=== PATIENT | female | born 1990 | race African-American/Black ===

== ENCOUNTER 2019-06-02 21:52 | Emergency (ER) | payer SELFPAY ==
[~2019-06-02] VITALS: Ht 160 cm; Wt 79.0 kg
[2019-06-02] MEDS ORDERED: KETOROLAC 30MG/ML VIAL IM ONE (23:15)
[2019-06-02 23:18] VITALS: BP 150/96
== END 2019-06-03 01:17 | disposition home or self-care (01) ==
LOC: ER 21:52
DX: S16.1XXA Strain of muscle, fascia and tendon at neck level, initial encounter (principal); V49.49XA Driver injured in collision with other motor vehicles in traffic accident, initial encounter; Y93.89 Activity, other specified; Y92.410 Unspecified street and highway as the place of occurrence of the external cause; R03.0 Elevated blood-pressure reading, without diagnosis of hypertension
CPT/HCPCS: 72040; 96372; 99283; J1885; Z7610

== ENCOUNTER 2021-06-17 08:24 | Emergency (ER) | payer MEDICAID ==
[~2021-06-17] VITALS: Ht 170.2 cm; Wt 59.0 kg
[2021-06-17] MEDS ORDERED: SODIUM CHLORIDE 0.9% 1,000 ML IV ONE (09:00)
[2021-06-17] MEDS ORDERED: ACETAMINOPHEN 325MG TABLET PO ONE (09:00)
[2021-06-17 10:30] LABS: BASOPHILS % 0.3 % (0.0-2.0); EOSINOPHILS % 0.1 % (0.0-5.0); HEMATOCRIT. 44.3 % (36.0-48.0); HEMOGLOBIN. 14.9 g/dL (12.0-16.0); LYMPHOCYTES % 20.9 % (20.0-50.0); MEAN CORPUSCULAR HEMOGLOBIN 29.7 pg (28.0-32.0); MEAN CORPUSCULAR VOLUME 88.5 fL (81.0-99.0); MEAN PLATELET VOLUME 9.3 fl (7.4-10.4); NEUTROPHILS % 67.7 % (40.0-76.0); PLATELET 401 x1000/uL (130-400); RED BLOOD CELL COUNT 5.01 mill/uL (4.2-5.4); RED CELL DISTRIBUTION WIDTH 13.6 % (11.6-14.6)
[2021-06-17 10:35] LABS: CHLORIDE 95 mEq/L (98-107)
[2021-06-17 10:46] LABS: B-HCG QUANTITATIVE 937 mIU/mL (<3)
[2021-06-17] MEDS ORDERED: PY25 MT (11:48)
[2021-06-17 13:34] VITALS: BP 124/68
[2021-06-25] MEDS ORDERED: FERR324T4 MT (15:00)
[2021-06-25] MEDS ORDERED: IBUP-2029 MT (15:00)
[2021-06-25] MEDS ORDERED: MULT-1116 MT (15:00)
== END 2021-06-17 13:35 | disposition home or self-care (01) ==
LOC: ER 08:24
DX: O46.91 Antepartum hemorrhage, unspecified, first trimester (principal); Z3A.01 Less than 8 weeks gestation of pregnancy; F12.10 Cannabis abuse, uncomplicated
CPT/HCPCS: 36415; 76801; 76817; 80053; 84702; 85025; 86850; 86900; 86901; 96360; 96361; 99285; J7030

== ENCOUNTER 2021-06-23 12:50 | Inpatient (IN) | payer MEDICAID, OTHER ==
[~2021-06-23] VITALS: Ht 157.5 cm; Wt 77.2 kg
[~2021-06-23 12:50] MED LIST: PY25 MT
[2021-06-23] MEDS ORDERED: ONDANSETRON HCL 4MG/2ML INJ IV STA (16:08)
[2021-06-23] MEDS ORDERED: SODIUM CHLORIDE 0.9% 1,000 ML IV ONE (16:15)
[2021-06-23 17:59] LABS: BASOPHILS % 0.4 % (0.0-2.0); EOSINOPHILS % 0.1 % (0.0-5.0); HEMATOCRIT. 37.8 % (36.0-48.0); HEMOGLOBIN. 12.5 g/dL (12.0-16.0); LYMPHOCYTES % 19.3 % (20.0-50.0); MEAN CORPUSCULAR HEMOGLOBIN 29.4 pg (28.0-32.0); MEAN CORPUSCULAR VOLUME 88.6 fL (81.0-99.0); MEAN PLATELET VOLUME 9.9 fl (7.4-10.4); MONOCYTES % 8.5 % (2.0-8.0); NEUTROPHILS % 71.7 % (40.0-76.0); PLATELET 398 x1000/uL (130-400); RED BLOOD CELL COUNT 4.26 mill/uL (4.2-5.4); RED CELL DISTRIBUTION WIDTH 12.8 % (11.6-14.6)
[2021-06-23 18:06] LABS: CHLORIDE 94 mEq/L (98-107)
[2021-06-23 18:08] LABS: HCG SCREEN POSITIVE; INR 1.1; PROTHROMBIN TIME 11.3 sec (9.6-11.0)
[2021-06-23] MEDS ORDERED: POTASSIUM CHLORIDE INJ 40 MEQ in DEXT 5% WATER 250 ML IV ONE (18:30)
[2021-06-23] MEDS ORDERED: KCL 20MEQ/100ML PREMIX 100 ML IV SCH (18:30)
[2021-06-23] MEDS ORDERED: FENTANYL CITRATE/PF 50MCG/ML 2ML VIAL ONE (21:15)
[2021-06-23] MEDS ORDERED: MIDAZOLAM HCL 2 MG/2 ML VIAL ONE (21:16)
[2021-06-23] MEDS ORDERED: ROCURONIUM BROMIDE 10MG/ML VIAL 5ML IV ONE (21:19)
[2021-06-23] MEDS ORDERED: METOCLOPRAMIDE HCL 10MG/2ML VIAL ONE (21:19)
[2021-06-23] MEDS ORDERED: LIDOCAINE HCL 2% JELLY 5ML ONE (21:19)
[2021-06-23] MEDS ORDERED: PROPOFOL 200MG/20ML VIAL IV ONE ×2 (21:19→22:53)
[2021-06-23] MEDS ORDERED: DEXAMETHASONE 4MG/ML 1ML VIAL ONE (21:19)
[2021-06-23] MEDS ORDERED: ONDANSETRON HCL 4MG/2ML INJ ONE (21:19)
[2021-06-23] MEDS ORDERED: LIDOCAINE HCL/PF 1% 10 MG/ML 5ML VIAL ONE (21:19)
[2021-06-23] MEDS ORDERED: BUPIVACAINE HCL/PF 0.25% (2.5MG/ML) 10ML ONE (21:35)
[2021-06-23] MEDS ORDERED: SUCCINYLCHOLINE CHLORIDE 200MG/10ML IV ONE (21:45)
[2021-06-23] MEDS ORDERED: CEFAZOLIN SODIUM 1000MG/VIAL ONE (22:17)
[2021-06-23] MEDS ORDERED: SKIN ADHESIVE 0.7 GM EA TOP ONE (22:31)
[2021-06-23] MEDS ORDERED: NEOSTIGMINE METHYLSULFATE 1MG/ML 10 ML VIAL ONE (22:46)
[2021-06-23] MEDS ORDERED: GLYCOPYRROLATE 0.2 MG/ML 2ML VIAL ONE (22:46)
[2021-06-23] MEDS ORDERED: KETOROLAC 30MG/ML VIAL ONE (23:03)
[2021-06-23] MEDS ORDERED: ACETAMINOPHEN WITH CODEINE 300/30MG TABLET PO PRN (23:15)
[2021-06-23] MEDS ORDERED: ONDANSETRON HCL 4MG/2ML INJ IV PRN (23:15)
[2021-06-23] MEDS ORDERED: KETOROLAC 60MG/2ML VIAL IM NR (23:15)
[2021-06-23] MEDS ORDERED: NALOXONE HCL 0.4MG/ML VIAL IV PRN (23:30)
[2021-06-23] MEDS ORDERED: HYDROMORPHONE HCL/PF 2MG/ML CPJ IV PRN (23:45)
[2021-06-23] MEDS ORDERED: DIPHENHYDRAMINE 50MG/ML VIAL IV PRN (23:45)
[2021-06-24] VITALS (7 sets, daily range): BP systolic 118–136; BP diastolic 63–90
[2021-06-24] MEDS: KETOROLAC 30MG/ML VIAL IV SCH ×3 (05:21→22:12)
[2021-06-24 06:52] LABS: BASOPHILS % 0.1 % (0.0-2.0); HEMATOCRIT. 28.7 % (36.0-48.0); HEMOGLOBIN. 9.7 g/dL (12.0-16.0); MEAN CORPUSCULAR HEMOGLOBIN 30.3 pg (28.0-32.0); MEAN CORPUSCULAR VOLUME 89.3 fL (81.0-99.0); MEAN PLATELET VOLUME 9.8 fl (7.4-10.4); MONOCYTES % 6.4 % (2.0-8.0); NEUTROPHILS % 85.5 % (40.0-76.0); PLATELET 272 x1000/uL (130-400); RED BLOOD CELL COUNT 3.22 mill/uL (4.2-5.4); RED CELL DISTRIBUTION WIDTH 12.8 % (11.6-14.6)
[2021-06-24] MEDS: FAMOTIDINE 20MG/2ML VIAL IV SCH ×2 (08:31→22:11)
[2021-06-24] MEDS ORDERED: BISACODYL 10MG SUPP PR NR (09:24)
[2021-06-24] MEDS ORDERED: POLYETHYLENE GLYCOL 3350 (17GM) 1 DOSE PACK PO NR (09:25)
[2021-06-24 19:47] LABS: CLARITY URINE CLEAR (CLEAR); COLOR URINE YELLOW (YELLOW); KETONES URINE NEGATIVE (NEGATIVE); LEUKOCYTE ESTERASE URINE 1+ (NEGATIVE); NITRITE URINE NEGATIVE (NEGATIVE); OCCULT BLOOD URINE 3+ (NEGATIVE); PROTEIN URINE TRACE (NEGATIVE); SPECIFIC GRAVITY URINE 1.009 (1.005-1.030)
[2021-06-24 19:58] LABS: UCG SCREEN POSITIVE
[2021-06-25] VITALS: BP 112/66
[2021-06-25 04:00] VITALS: BP 114/69
[2021-06-25] MEDS: KETOROLAC 30MG/ML VIAL IV SCH (06:12)
[2021-06-25 07:59] LABS: BASOPHILS % 0.3 % (0.0-2.0); EOSINOPHILS % 0.4 % (0.0-5.0); HEMATOCRIT. 26.4 % (36.0-48.0); HEMOGLOBIN. 8.9 g/dL (12.0-16.0); LYMPHOCYTES % 35.7 % (20.0-50.0); MEAN CORPUSCULAR HEMOGLOBIN 30.2 pg (28.0-32.0); MEAN PLATELET VOLUME 10.2 fl (7.4-10.4); MONOCYTES % 14.2 % (2.0-8.0); NEUTROPHILS % 49.4 % (40.0-76.0); PLATELET 251 x1000/uL (130-400); RED BLOOD CELL COUNT 2.93 mill/uL (4.2-5.4); RED CELL DISTRIBUTION WIDTH 13.3 % (11.6-14.6)
[2021-06-25 08:00] VITALS: BP 110/70
[2021-06-25] MEDS: FAMOTIDINE 20MG/2ML VIAL IV SCH (10:53)
[2021-06-25 12:00] VITALS: BP 123/62
[2021-06-25] MEDS ORDERED: MULT-1116 MT (15:00)
[2021-06-25] MEDS ORDERED: IBUP-2029 MT (15:00)
[2021-06-25] MEDS ORDERED: FERR324T4 MT (15:00)
[2021-06-25 15:07] VITALS: BP 123/62
[2021-06-25] MEDS ORDERED: FAMOTIDINE 20MG TABLET PO SCH (21:00)
== END 2021-06-25 15:50 | disposition home or self-care (01) | DRG 547 ==
LOC: ER 12:50 → 8WST 20:28
PROVIDERS: ADMIT Specialist; ATTEND Specialist
PROC: 10T24ZZ Resection of Products of Conception, Ectopic, Percutaneous Endoscopic Approach (ICD-10-PCS; principal; 2021-06-23)
DX: O00.90 Unspecified ectopic pregnancy without intrauterine pregnancy (principal); K66.1 Hemoperitoneum; O99.321 Drug use complicating pregnancy, first trimester; O99.891 Other specified diseases and conditions complicating pregnancy; D64.9 Anemia, unspecified; E87.6 Hypokalemia; F12.10 Cannabis abuse, uncomplicated; F32.A Depression, unspecified; F41.9 Anxiety disorder, unspecified; K59.00 Constipation, unspecified; O21.9 Vomiting of pregnancy, unspecified; Z20.822 Contact with and (suspected) exposure to COVID-19; O99.011 Anemia complicating pregnancy, first trimester; O99.281 Endocrine, nutritional and metabolic diseases complicating pregnancy, first trimester; O99.341 Other mental disorders complicating pregnancy, first trimester; O99.611 Diseases of the digestive system complicating pregnancy, first trimester; Z3A.01 Less than 8 weeks gestation of pregnancy; Z80.1 Family history of malignant neoplasm of trachea, bronchus and lung; Z81.8 Family history of other mental and behavioral disorders; Z82.5 Family history of asthma and other chronic lower respiratory diseases; Z56.0 Unemployment, unspecified
CPT/HCPCS: 36415; 76801; 80053; 81003; 81025; 84132; 84702; 84703; 85025; 86850; 86900; 87426; 88302; 99291; J0330; J0690; J1100; J1885; J2250; J2405; J2704; J2710; J2765; J3010; J3480; J3490; J7030

== ENCOUNTER 2024-06-30 22:34 | Emergency (ER) | payer OTHER ==
[~2024-06-30] VITALS: Ht 167.6 cm; Wt 82.0 kg
[~2024-06-30 22:34] MED LIST changes: +FERR324T4 MT; +IBUP-2029 MT; +MULT-1116 MT
[2024-06-30 22:57] VITALS: O2SAT 100
[2024-06-30] MEDS ORDERED: PENI500T MT (23:04)
[2024-06-30] MEDS ORDERED: DEXA2TAB MT (23:05)
[2024-06-30 23:19] VITALS: BP 134/79; PULSE 80; RESP 18; TEMP 36.89184; O2SAT 100
== END 2024-07-01 | disposition home or self-care (01) ==
LOC: ER 22:34
DX: J02.8 Acute pharyngitis due to other specified organisms (principal); F12.90 Cannabis use, unspecified, uncomplicated; Z98.890 Other specified postprocedural states; Z79.899 Other long term (current) drug therapy
CPT/HCPCS: 87070; 87430; 99283